=== PATIENT | female | born 1990 | race Two or more races ===

== ENCOUNTER 2022-07-13 11:16 | Inpatient (IN) | payer OTHER ==
[~2022-07-13] VITALS: Ht 165.1 cm; Wt 81.2 kg
[2022-07-13] MEDS ORDERED: PRENATABS RX T1 EACH PO (11:56)
== END 2022-07-15 14:22 | disposition home or self-care (01) | DRG 807 ==
LOC: LDR 11:16 → OB/GYN 13:36
PROVIDERS: ADMIT Obstetrics & Gynecology; ATTEND Obstetrics & Gynecology
PROC: 10E0XZZ Delivery of Products of Conception, External Approach (ICD-10-PCS; principal; 2022-07-13)
PROC: 4A1HXCZ Monitoring of Products of Conception, Cardiac Rate, External Approach (ICD-10-PCS; 2022-07-13)
DX: O80 Encounter for full-term uncomplicated delivery (principal); Z37.0 Single live birth; Z3A.38 38 weeks gestation of pregnancy; Z20.822 Contact with and (suspected) exposure to COVID-19